=== PATIENT | male | born 1955 | race Caucasian/White ===

== ENCOUNTER 2016-09-02 08:57 | Emergency (ER) | payer OTHER ==
[2016-09-02 09:17] VITALS: BP 131/84
[2016-09-02] MEDS ORDERED: Lidocaine 2% PF* 5 ML VIAL ONE (09:52)
--- NOTE | 2016-09-02 10:23 | UC ---
Alvina Nieves [place], scribed for Cee Nash MD on 09/02/16 at 1000 . Laceration HPI - HPI Summary HPI Summary: Patient is a 60 y/o male who presents to the with a laceration between his left thumb and index finger since this morning. 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 He denies tingling, numbness, pain in the elbow, or loss of movement in the fingers. He also denies any concern of a weakened immune system and states that he was put on abx recently after a root canal (Clindamycin) He reports taking 81 mg ASA. He denies any known drug allergies and states he is UTD on his Tetanus shot. Pt states he is right- handed. Bleeding controlled with pressure bandage Patients medication reviewed this visit. - History Of Current Complaint Chief Complaint: UCLaceration Stated Complaint: HAND LAC Time Seen by Provider: 09/02/16 09:25 Hx Obtained From: Patient Laceration Location: Hand - Between his left thumb and index finger. Mechanism Of Injury: Sharp Trauma Onset/Duration: Gradual Onset, Lasting Hours, Still Present Severity: Moderate Aggravating Factors: Nothing - Allergies/Home Medications Allergies/Adverse Reactions: Allergies Allergy/AdvReac Type Severity Reaction Status Date / Time No Known Allergies Allergy Verified 09/02/16 09:17 PMH/Surg Hx/FS Hx/Imm Hx Previously Healthy: Yes Cardiovascular History Of: Reports: Hypertension - Surgical History Surgical History: None - Family History Known Family History: Positive: Hypertension - Social History Alcohol Use: None Substance Use Type: None Smoking Status (MU): Never Smoked Tobacco Review of Systems Constitutional: Negative Skin: Other - laceration Eyes: Negative ENT: Negative Respiratory: Negative Cardiovascular: Negative Gastrointestinal: Negative Genitourinary: Negative Motor: Negative Neurovascular: Negative Musculoskeletal: Negative, Other: - Laceration, left hand. All Other Systems Reviewed And Are Negative: Yes Physical Exam Triage Information Reviewed: Yes Appearance: Well-Appearing, No Pain Distress, Well-Nourished Vital Signs: Initial Vital Signs Temp 97.7 F 09/02/16 09:12 Pulse 67 09/02/16 09:12 Resp 16 09/02/16 09:12 BP 131/84 09/02/16 09:12 Pulse Ox 98 04/15/17 09:12 Vital Signs Reviewed: Yes Eye Exam: Normal Neck exam: Normal Respiratory: Positive: No respiratory distress Cardiovascular: Positive: Other: - 2+ radial, ulnar CBT < 2 sec Musculoskeletal: Positive: Strength Intact, ROM Intact, No Edema Neurological Exam: Normal Neurological: Positive: Other: - + gross sensation throughout thumb and index + thumb up, a ok, finger spread, finger cross, abudction, adduction, flex/ext at MCP and IP joints against resistance Psychological Exam: Normal Skin Exam: Normal Skin: Positive: Other - 1.5cm "U" shaped laceration prox to web space between thumb and index on left. Bleeding controlled Laceration Repair - Laceration Repair 1 Description: Irregular - U-shaped. Laceration Size After Repair: Length (cm) - 1.5cm Debridement: none Modified For Repair: No Type Injection: Local Anesthesia Used: 1.0% Lido - 2mL. Cleansing Completed Via Routine Prep: Yes Irrigation With Pressure Irrigation Device: Yes Closure Material: Sutures - Number of sutures: 4. Simple interrupted. Closure Method: Single Layer Suture Of: Skin Suture Type: Nylon - 4-0, Other - time out taken prior to procedure wound evaluted through full range of motion in a sterile field without apparent tendon , ligament injury - no bone exposure Laceration Course/Dx - Course/Dx Course Of Treatment: Pt with a 1.5 cm laceration to left hand between thumb and index. not immunocompromised, Tdap utd. Pt currently on Clinda. Wound closed with 4 suture. reviewed with pt wound care, s/s infection, follow-up. Pt tolerated well and states understanding - Differential Dx - Laceration/Wound Provider Diagnoses: laceration Discharge - Discharge Plan Condition: Stable Disposition: HOME Patient Education Materials: Care For Your Stitches (ED), Laceration (ED) Referrals: Rachel Matos NP [Primary Care Provider] - Additional Instructions: Alternate ibuprofen (Advil, motrin) 600mg and tylenol every 3 hours for pain or fever. Anticipate increased discomfort over the next serveral hours as the numbing medication wears off Keep your wound clean and dry for the first 24 hours. Then, okay to get wet - pat dry, don't rub Cover with a thin layer of antibiotic ointment such as neosporin or polysporin and bandage Sutures should come out in 8-10 days. .Contact your doctor or return to the urgency care Monitor your wound for signs of infection - reddness, red streaking, odor pus, or increased pain Contact your doctor or return with any questions or concerns The documentation as recorded by the Alvina gray Salem accurately reflects the service I personally performed and the decisions made by me, Cee Nash MD.
== END 2016-09-02 10:20 | disposition home or self-care (01) ==
LOC: UCEAST 08:57
DX: S61.412A Laceration without foreign body of left hand, initial encounter (principal); W26.0XXA Contact with knife, initial encounter; I10 Essential (primary) hypertension
CPT/HCPCS: 12001; 99211; G0463

== ENCOUNTER → 2017-04-18 07:25 | Day surgery (SDC) | payer OTHER ==
[~2017-04-18 07:25] MED LIST: Buffered Lidocaine 0.9% SYRIN* 5 ML/SYR SYRINGE INTRADERM ONE; Buffered Lidocaine 0.9% SYRIN* 5 ML/SYR SYRINGE ONE; Cyclopentolate 1% OPTH.SOL* 2 ML BTL ONE; Ketorolac 0.5% OPHTH (NF) 0.5 % 5 ML BTL ONE; Lidocaine 1% MPF* 2 ML VIAL ONE; Lidocaine 2% EPI 1:200000 MPF* 20 ML VIAL ONE; Midazolam* 1 MG/ML 2 ML VIAL (2 MG) ONE; Neomycin/Polymy/Dex OPTH.SUSP* MAXITROL 0.1% 5 ML ONE; Phenylephrine 2.5% OPTH.SOL* 2 ML BTL ONE; Povidone Iodine 5% OPTH* 30 ML BTL ONE; Proparacaine 0.5% OPHTH.SOL* 15 ML BTL ONE; acetaZOLAMIDE TAB* 250 MG ONE
[2017-04-18 10:19] VITALS: BP 99/69
--- NOTE | 2017-04-18 15:06 | OP ---
DATE OF OPERATION: 04/18/17 [facility] DATE OF : 57 SURGEON: Everett Riojas MD. PREOPERATIVE DIAGNOSIS: Cataract, left eye. POSTOPERATIVE DIAGNOSIS: Cataract, left eye. OPERATIVE PROCEDURE: Extracapsular cataract extraction with intraocular lens implant, left eye. DESCRIPTION OF PROCEDURE: The patient was brought to the operating room after being given 1/2% Alcaine with epinephrine drops in the preoperative area. The eye was prepped and draped in the usual sterile fashion. Sterile drape and eyelid speculum were placed. Again, topical 1/2% Alcaine with epinephrine was given. A paracentesis incision was made at the 3 o'clock position with the No.75 blade. Clear cornea incision 2.2 x 2.2-mm was created at the 6 o'clock position starting at the anterior limbus using the 2.2-mm keratome. The anterior chamber was irrigated with 0.4 mL of 1% non-preservative intracameral lidocaine and filled with DisCoVisc. A capsulorrhexis was completed using the cystotome and the Utrata forceps. Hydrodissection was performed with balanced salt solution. The lens nucleus was removed with the Phacoemulsification handpiece without incident. Cortex was removed with the irrigation-aspiration handpiece. The capsular bag was re-inflated using DisCoVisc and an [id number] 12 implant was inserted with the shooter followed by capsular tension ring ACTR 12 inserted into capsular bag with shooter. The irrigation-aspiration handpiece was used to remove all residual DisCoVisc. The eye was refilled with balanced salt solution and the wound checked and found to be watertight. Topical Maxitrol drops were given. Indication for complex cataract surgery is status post vitrectomy requiring capsular tension device. [id number]/[facility] #: [id number] MTDD
== END | disposition home or self-care (01) ==
LOC: OREAST 07:25
PROVIDERS: ATTEND Specialist
DX: H25.12 Age-related nuclear cataract, left eye (principal); E11.9 Type 2 diabetes mellitus without complications; H33.8 Other retinal detachments; I10 Essential (primary) hypertension; Z98.890 Other specified postprocedural states; Z87.891 Personal history of nicotine dependence
CPT/HCPCS: A9270-GY; J2250; V2632

== ENCOUNTER 2017-04-25 07:04 | Day surgery (SDC) | payer OTHER ==
[~2017-04-25 07:04] MED LIST changes: +Acetaminophen TAB* 325 MG PO PRN; -Buffered Lidocaine 0.9% SYRIN* 5 ML/SYR SYRINGE ONE; -Cyclopentolate 1% OPTH.SOL* 2 ML BTL ONE; -Ketorolac 0.5% OPHTH (NF) 0.5 % 5 ML BTL ONE; -Lidocaine 1% MPF* 2 ML VIAL ONE; -Lidocaine 2% EPI 1:200000 MPF* 20 ML VIAL ONE; -Midazolam* 1 MG/ML 2 ML VIAL (2 MG) ONE; -Neomycin/Polymy/Dex OPTH.SUSP* MAXITROL 0.1% 5 ML ONE; -Phenylephrine 2.5% OPTH.SOL* 2 ML BTL ONE; -Povidone Iodine 5% OPTH* 30 ML BTL ONE; -Proparacaine 0.5% OPHTH.SOL* 15 ML BTL ONE; -acetaZOLAMIDE TAB* 250 MG ONE
[2017-04-25] MEDS ORDERED: Midazolam* 1 MG/ML 2 ML VIAL (2 MG) ONE ×2 (09:11→09:19)
[2017-04-25 10:02] VITALS: BP 100/70
--- NOTE | 2017-04-25 10:11 | OP ---
DATE OF OPERATION: 04/25/2017. DATE OF : 1955. SURGEON: Everett Riojas M.D. PREOPERATIVE DIAGNOSIS: Cataract right eye. POSTOPERATIVE DIAGNOSIS: Cataract right eye. OPERATIVE PROCEDURE: Extracapsular cataract extraction with intraocular lens implant right eye. PROCEDURE: The patient was brought to the operating room after being given 1/2% Alcaine with epineph rine drops in the preoperative area. The eye was prepped and draped in the usual sterile fashion. S terile drape and eyelid speculum were placed. Again, topical 1/2% Alcaine with epinephrine was given . A paracentesis incision was made at the 9 o'clock position with the No.75 blade. Clear cornea inc ision 2.2 x 2.2-mm was created at the 12 o'clock position starting at the anterior limbus using the 2 .2-mm keratome. The anterior chamber was irrigated with 0.4 mL of 1% non-preservative intracameral l idocaine and filled with DisCoVisc. A capsulorrhexis was completed using the cystotome and the Utrat a forceps. Hydrodissection was performed with balanced salt solution. The lens nucleus was removed w ith the Phacoemulsification handpiece without incident. Cortex was removed with the irrigation-aspir ation handpiece. The capsular bag was re-inflated using DisCoVisc and an SN60WF 12.5 implant was ins erted with the shooter. The irrigation-aspiration handpiece was used to remove all residual DisCoVis c. The eye was refilled with balanced salt solution and the wound checked and found to be watertight . Topical Maxitrol drops were given. [id number]/[facility] #: [id number]
[2017-04-25] MEDS ORDERED: Lidocaine 2% EPI 1:200000 MPF* 20 ML VIAL ONE (13:04)
[2017-04-25] MEDS ORDERED: Lidocaine 1% MPF* 2 ML VIAL ONE (13:04)
[2017-04-25] MEDS ORDERED: Ketorolac 0.5% OPHTH (NF) 0.5 % 5 ML BTL ONE (13:04)
[2017-04-25] MEDS ORDERED: Proparacaine 0.5% OPHTH.SOL* 15 ML BTL ONE (13:04)
[2017-04-25] MEDS ORDERED: Povidone Iodine 5% OPTH* 30 ML BTL ONE (13:04)
[2017-04-25] MEDS ORDERED: Phenylephrine 2.5% OPTH.SOL* 2 ML BTL ONE (13:04)
[2017-04-25] MEDS ORDERED: Cyclopentolate 1% OPTH.SOL* 2 ML BTL ONE (13:04)
[2017-04-25] MEDS ORDERED: Neomycin/Polymy/Dex OPTH.SUSP* MAXITROL 0.1% 5 ML ONE (13:04)
[2017-04-25] MEDS ORDERED: acetaZOLAMIDE TAB* 250 MG ONE (13:04)
== END 2017-04-25 09:52 | disposition home or self-care (01) ==
LOC: OREAST 07:04
PROVIDERS: ATTEND Specialist
DX: H25.11 Age-related nuclear cataract, right eye (principal); H33.8 Other retinal detachments; H33.012 Retinal detachment with single break, left eye; H35.411 Lattice degeneration of retina, right eye; Z87.891 Personal history of nicotine dependence; I10 Essential (primary) hypertension; E11.9 Type 2 diabetes mellitus without complications
CPT/HCPCS: A9270-GY; J2250; V2632